=== PATIENT | male | born 1955 | race Caucasian/White ===

== ENCOUNTER 2023-04-03 13:41 | Outpatient (CLI) | payer OTHER | END 2023-04-03 13:48 | disposition home or self-care (01) | LOC: RAD 13:41 | DX: J44.9 Chronic obstructive pulmonary disease, unspecified (principal) ==

== ENCOUNTER 2023-04-30 07:14 | Outpatient (CLI) | payer OTHER | END 2023-04-30 07:19 | disposition home or self-care (01) | LOC: NUCLEAR 07:14 | PROVIDERS: ATTEND Internal Medicine | DX: I20.9 Angina pectoris, unspecified (principal); I11.9 Hypertensive heart disease without heart failure | CPT/HCPCS: 78452; 93017; 93306; A9500 ==

== ENCOUNTER → 2024-09-03 | Outpatient (CLI) | payer OTHER | END | disposition home or self-care (01) | LOC: TOM 07:29 | PROVIDERS: ATTEND Urology | DX: N40.1 Benign prostatic hyperplasia with lower urinary tract symptoms (principal); S37.23XA Laceration of bladder, initial encounter ==